=== PATIENT | male | born 1995 | race African-American/Black ===

== ENCOUNTER 2025-04-08 00:29 | Emergency (ER) | payer MEDICAID ==
[~2025-04-08] VITALS: Ht 182.9 cm; Wt 83.0 kg
[2025-04-08 01:11] LABS: PLATELET COUNT (AUTO) 228 K/uL (152-348); RED BLOOD CELL COUNT(AUTO) 5.31 MIL/uL (4.06-5.63); RED CELL DISTRIBUTION WIDTH 14.0 % (12.1-16.2); WHITE BLOOD COUNT (AUTO) 11.6 K/uL (3.6-10.2)
[2025-04-08 01:18] LABS: CREATININE 1.2 mg/dL (0.6-1.3); SODIUM SERUM 140.0 mmol/L (136-145); UREA NITROGEN, BLOOD 20.0 mg/dL (7-18)
[2025-04-08 01:24] LABS: ASPARTATE AMINOTRANSFERASE 31.0 U/L (15-37); TOTAL PROTEIN, SERUM 8.8 g/dL (6.4-8.2)
[2025-04-08 01:34] LABS: ETHANOL < 3 MG/DL (0-10)
[2025-04-08] MEDS ORDERED: diphenhydrAMINE 50 MG/1 ML VIAL ONE (01:46)
[2025-04-08 04:09] LABS: *BILIRUBIN,URIN 2+ (NEGATIVE); *BLOOD, URINE NEGATIVE (NEGATIVE); *CLARITY,URINE CLEAR (CLEAR); *KETONES,URINE 4+ (NEGATIVE); *PROTEIN,URINE 2+ (NEGATIVE); *UROBILINOGEN,URINE 1.0 E.U./dl (NORMAL); LEUKOCYTE ESTERASE ,URINE NEGATIVE (NEGATIVE); NITRITE, URINE NEGATIVE (NEGATIVE); UGLUCOSE NEGATIVE (NEGATIVE)
[2025-04-08 04:28] LABS: *COLOR,URINE DARK YELLOW (YELLOW)
[2025-04-08 04:36] LABS: *AMPHETAMINE, URINE POSITIVE (NEGATIVE); *BARBITURATE, URINE NEGATIVE (NEGATIVE); *BENZODIAZEPINE, URINE NEGATIVE (NEGATIVE); *CANNABINOID, URINE POSITIVE (NEGATIVE); *COCCAINE, URINE NEGATIVE (NEGATIVE); *OPIATE, URINE NEGATIVE (NEGATIVE); *PHENCYCLIDINE SCREEN,URINE NEGATIVE (NEGATIVE); FENTANYL, URINE NEGATIVE (NEGATIVE)
[2025-04-08 04:40] LABS: SQUAMOUS EPITHELIAL CELL,UR FEW /HPF (NONE SEEN)
[2025-04-08] MEDS ORDERED: CLONIDINE HCL 0.1 MG TABLET ONE (09:48)
[2025-04-08] MEDS: CLONIDINE HCL 0.1 MG TABLET PO ONE (09:50)
[2025-04-08 10:50] VITALS: BP 146/105
[2025-04-08 13:09] VITALS: BP 133/88; O2SAT 98
== END 2025-04-08 13:07 ==
LOC: ER 00:41
DX: R44.0 Auditory hallucinations (principal); R44.1 Visual hallucinations; Z20.822 Contact with and (suspected) exposure to COVID-19; Z88.7 Allergy status to serum and vaccine
CPT/HCPCS: 80076; 80048; 81001; 84443; 85025; 87426; 36415; 99285; 80320; 80307; 98960; Q0163; A4606; A4663; G0480; J1200